=== PATIENT | male | born 1990 | race African-American/Black ===

== ENCOUNTER 2022-09-24 05:14 | Day surgery (SDC) | payer OTHER ==
[2022-09-21 13:26] VITALS: BMI 25.8
[~2022-09-24 05:14] MED LIST: LIDOCAINE 1%/EPI 1:100000 (20 ML MULTI DOSE VIAL) IJ ONE; ceFAZolin SODIUM 1 GM VIAL IVPB ONE
[2022-09-24] MEDS ORDERED: PROPOFOL 20 ML ONE (10:47)
[2022-09-24] MEDS ORDERED: ROCURONIUM BROMIDE 50 MG/5 ML SYRINGE ONE (10:47)
[2022-09-24] MEDS ORDERED: MIDAZOLAM HCL 2 MG/2 ML SINGLE DOSE VIAL ONE (10:47)
[2022-09-24] MEDS ORDERED: ceFAZolin SODIUM 1 GM VIAL IVPB ONE (11:23)
[2022-09-24] MEDS ORDERED: DEXAMETHASONE SOD PHOSPHATE 10 MG/1 ML VIAL IVPUSH ONE (11:23)
[2022-09-24] MEDS ORDERED: ONDANSETRON 4 MG/2 ML VIAL ONE (11:25)
[2022-09-24] MEDS ORDERED: ceFAZolin SODIUM 1 GM VIAL ONE ×2 (11:25)
[2022-09-24] MEDS ORDERED: DEXAMETHASONE SOD PHOSPHATE 4 MG/1 ML VIAL ONE ×2 (11:25)
[2022-09-24] MEDS ORDERED: LIDOCAINE 1%/EPI 1:100000 (20 ML MULTI DOSE VIAL) IJ ONE (11:38)
[2022-09-24] MEDS ORDERED: OXYMETAZOLINE 0.05% NASAL SOLUTION 15 ML BOTTLE NS ONE (11:39)
[2022-09-24] MEDS ORDERED: LABETALOL HCL 20 MG/4 ML VIAL ONE (11:53)
[2022-09-24] MEDS ORDERED: BACITRACIN ZINC 15 GM TUBE TOPICAL OINTMENT ONE (12:01)
[2022-09-24] MEDS ORDERED: NEOSTIGMINE METHYLSULFATE 0.5 MG/1 ML - 10 ML MDV ONE (12:19)
[2022-09-24] MEDS ORDERED: oxyCODONE HCL 5 MG TABLET PO PRN (12:47)
[2022-09-24] MEDS ORDERED: ONDANSETRON 4 MG/2 ML VIAL IVPUSH PRN (12:47)
[2022-09-24 15:51] VITALS: BP 129/81; PULSE 77; RESP 18; TEMP 98
== END 2022-09-24 15:45 | disposition home or self-care (01) ==
LOC: JASU-SURG 05:14
PROVIDERS: ATTEND Otolaryngology
PROC: 09BM8ZZ Excision of Nasal Septum, Via Natural or Artificial Opening Endoscopic (ICD-10-PCS; principal; 2022-09-24 12:00)
PROC: 09TL8ZZ Resection of Nasal Turbinate, Via Natural or Artificial Opening Endoscopic (ICD-10-PCS; 2022-09-24 12:00)
DX: J34.2 Deviated nasal septum (principal); J34.3 Hypertrophy of nasal turbinates
CPT/HCPCS: 88304-TC; 94760; J1100